=== PATIENT | female | born 1995 | race Caucasian/White ===

== ENCOUNTER 2021-08-03 02:19 | Emergency (ER) | payer OTHER ==
[2021-08-03 02:40] VITALS: BP 125/85; PULSE 81; TEMP 97.7; BMI 37.8
[2021-08-03] MEDS ORDERED: LACTATED RINGERS SOLUTION 1000 ML INFUS.BAG IV ONE (02:51)
[2021-08-03] MEDS ORDERED: MAG HYDROX/AL HYDROX/SIMETH 30 ML UNIT-DOSE CUP PO ONE (02:52)
[2021-08-03] MEDS ORDERED: FAMOTIDINE 20 MG/50 ML IVPB 20 MG/50 ML MG IVPB ONE (02:52)
[2021-08-03] MEDS ORDERED: ONDANSETRON 4 MG/2 ML VIAL IVPUSH ONE (02:52)
[2021-08-03] MEDS ORDERED: MAG HYDROX/AL HYDROX/SIMETH 30 ML UNIT-DOSE CUP ONE (02:55)
[2021-08-03] MEDS ORDERED: ONDANSETRON 4 MG/2 ML VIAL ONE (03:02)
[2021-08-03] MEDS ORDERED: FAMOTIDINE 10 MG/ML VIAL IVPB ONE (03:02)
[2021-08-03 03:23] LABS: BASO % 0.4 % (0-2.0); EOS % 0.9 % (0-4.5); HEMATOCRIT 31.7 % (32.4-45.2); HEMOGLOBIN 10.7 GM/dL (10.7-15.3); LYMPH % 6.9 % (8-40); MCH 27.8 pg (25.7-33.7); MCHC 33.8 g/dl (32.0-36.0); MEAN CELL VOLUME 82.1 fl (80-96); MEAN PLT VOLUME 7.2 fl (7.5-11.1); MONO % 4.8 % (3.8-10.2); PLATELET COUNT 371 10^3/uL (134-434); RBC 3.86 M/mm3 (3.60-5.2); RDW 13.8 % (11.6-15.6)
[2021-08-03 03:35] LABS: ALBUMIN 3.4 g/dl (3.4-5.0)
[2021-08-03 03:36] LABS: BLOOD UREA NITROGEN 13.4 mg/dL (7-18)
[2021-08-03 03:38] LABS: CREATININE 0.7 mg/dL (0.55-1.3)
[2021-08-03 03:40] LABS: BILIRUBIN,TOTAL 0.4 mg/dL (0.2-1); TOT PROT 7.2 g/dl (6.4-8.2)
[2021-08-03] MEDS ORDERED: METOCLOPRAMIDE HCL INJECTION 10 MG/2 ML VIAL IVPUSH ONE (03:42)
[2021-08-03] MEDS ORDERED: METOCLOPRAMIDE HCL INJECTION 10 MG/2 ML VIAL ONE (03:47)
[2021-08-03 04:42] LABS: URINE APPEARANCE CLEAR; URINE BILIRUBIN NEGATIVE (NEGATIVE); URINE COLOR YELLOW; URINE GLUCOSE (UA) NEGATIVE (NEGATIVE); URINE KETONE NEGATIVE (NEGATIVE); URINE LEUK ESTERASE NEGATIVE (NEGATIVE); URINE NITRITE NEGATIVE (NEGATIVE); URINE PROTEIN NEGATIVE (NEGATIVE); URINE UROBILINOGEN 0.2 mg/dL (0.2-1.0)
== END 2021-08-03 05:08 | disposition home or self-care (01) ==
LOC: JER 02:19
PROC: 3E033GC Introduction of Other Therapeutic Substance into Peripheral Vein, Percutaneous Approach (ICD-10-PCS; principal; 2021-08-03)
PROC: 3E033GC Introduction of Other Therapeutic Substance into Peripheral Vein, Percutaneous Approach (ICD-10-PCS; 2021-08-03)
PROC: 3E033GC Introduction of Other Therapeutic Substance into Peripheral Vein, Percutaneous Approach (ICD-10-PCS; 2021-08-03)
DX: T62.91XA Toxic effect of unspecified noxious substance eaten as food, accidental (unintentional), initial encounter (principal); R11.10 Vomiting, unspecified
CPT/HCPCS: 36415; 80053; 81003; 83690; 84703; 85025; 87086; 99284-25